=== PATIENT | female | born 1960 | race Caucasian/White ===

== ENCOUNTER 2022-10-14 19:58 | Emergency (ER) | payer OTHER ==
[2022-10-14 20:06] VITALS: BP 139/71; PULSE 89; RESP 17; TEMP 97.9; BMI 19.5
[2022-10-14] MEDS ORDERED: IBUPROFEN 600 MG TABLET (FP) PO ONE ×2 (21:47→21:49)
== END 2022-10-14 22:52 | disposition home or self-care (01) ==
LOC: JER 19:58 → JERFT 19:58
DX: R51.9 Headache, unspecified (principal); M54.2 Cervicalgia; V49.50XA Passenger injured in collision with unspecified motor vehicles in traffic accident, initial encounter
CPT/HCPCS: 72050-TC-FY; 99283-25